=== PATIENT | male | born 1995 | race Two or more races ===

== ENCOUNTER 2024-08-21 01:24 | Emergency (ER) | payer SELFPAY ==
[~2024-08-21] VITALS: Ht 188 cm; Wt 103.0 kg
[2024-08-21 01:30] VITALS: O2SAT 99
[2024-08-21 02:46] LABS: BASOPHILS % 0.4 % (0.0-2.0); EOSINOPHILS % 0.2 % (0.0-5.0); HEMATOCRIT. 51.2 % (42.0-52.0); HEMOGLOBIN. 17.5 g/dL (14.0-18.0); LYMPHOCYTES % 11.6 % (20.0-50.0); MEAN CORPUSCULAR HEMOGLOBIN 30.8 pg (28.0-32.0); MEAN CORPUSCULAR HGB CONC 34.1 g/dL (31.0-37.0); MEAN CORPUSCULAR VOLUME 90.5 fL (80.0-94.0); MEAN PLATELET VOLUME 8.1 fl (7.4-10.4); MONOCYTES % 5.5 % (2.0-8.0); NEUTROPHILS % 82.3 % (40.0-76.0); PLATELET 479 x1000/uL (130-400); RED BLOOD CELL COUNT 5.66 mill/uL (4.7-6.1); RED CELL DISTRIBUTION WIDTH 13.1 % (11.6-14.6); WHITE BLOOD COUNT 8.7 x1000/uL (4.5-11.0)
[2024-08-21 02:56] LABS: CHLORIDE 104 mEq/L (98-107); POTASSIUM 3.5 mEq/L (3.5-5.1); SODIUM 141 mEq/L (136-145)
[2024-08-21 02:57] LABS: CALCIUM 9.6 mg/dL (8.7-10.4); CARBON DIOXIDE 22 mEq/L (21-32)
[2024-08-21 03:02] LABS: CREATININE 0.7 mg/dL (0.6-1.3); GLUCOSE 126 mg/dL (70-105); UREA NITROGEN BLOOD 5 mg/dL (9-23)
[2024-08-21 03:50] VITALS: TEMP 36.7
[2024-08-21 03:52] LABS: TROPONIN I HIGH SENSITIVITY < 4 ng/L (3.0-53)
[2024-08-21] MEDS: KETOROLAC 30MG/ML VIAL IV ONE (05:44)
[2024-08-21 05:47] VITALS: BP 135/92; PULSE 111; RESP 33; O2SAT 95
== END 2024-08-21 06:24 | disposition home or self-care (01) ==
LOC: ER 01:24
DX: S20.219A Contusion of unspecified front wall of thorax, initial encounter (principal); F10.129 Alcohol abuse with intoxication, unspecified; F12.90 Cannabis use, unspecified, uncomplicated; Z79.899 Other long term (current) drug therapy; W22.01XA Walked into wall, initial encounter; Y93.89 Activity, other specified; Y92.89 Other specified places as the place of occurrence of the external cause; Y99.8 Other external cause status; Y90.9 Presence of alcohol in blood, level not specified
CPT/HCPCS: 99285; 96374; 71250; 71045; 80048; 83880; 85025; 84484; 36415; 93005; J1885